=== PATIENT | female | born 1990 | race Hispanic/Latino ===

== ENCOUNTER 2017-09-03 10:48 | Day surgery (SDC) | payer BC ==
[2017-08-29 14:13] VITALS: BMI 25.9
[2017-09-03] MEDS ORDERED: Propofol 10 mg/ml Inj (20 ML) ONE (11:41)
[2017-09-03] MEDS ORDERED: Sodium Chloride 0.9% 1,000 ML IV SCH (12:00)
[2017-09-03 14:15] VITALS: BP 100/59; PULSE 73; RESP 16; TEMP 97.7; O2SAT 100
== END 2017-09-03 13:17 | disposition home or self-care (01) ==
LOC: ENDO 10:48
PROVIDERS: ATTEND Internal Medicine Gastroenterology
DX: K29.70 Gastritis, unspecified, without bleeding (principal); K21.9 Gastro-esophageal reflux disease without esophagitis